=== PATIENT | female | born 1960 | race Caucasian/White ===

== ENCOUNTER 2020-10-28 13:19 | Emergency (ER) | payer MEDICAID ==
[~2020-10-28 13:19] MED LIST: DIPH25CA83 PO; ESCI10TA PO; GUAI-647 PO; LOPE-144 PO; MECL-109 PO; VITAMIN D PO
--- NOTE | 2020-10-28 13:32 | NUR ---
PT TELLS REGISTRATION SHE IS LEAVING, DOESNT WANT TO WAIT.
== END 2020-10-28 13:34 | disposition left against medical advice (07) ==
LOC: ER 13:20
DX: H57.10 Ocular pain, unspecified eye (principal); Z53.21 Procedure and treatment not carried out due to patient leaving prior to being seen by health care provider

== ENCOUNTER 2020-10-29 06:41 | Emergency (ER) | payer MEDICAID ==
[~2020-10-29] VITALS: Ht 152.4 cm; Wt 65.9 kg
[2020-10-29 06:44] VITALS: BP 137/80
[2020-10-29] MEDS ORDERED: proparacaine 0.5% ophthalmic drops 15ml EACHEYE ONE (09:10)
== END 2020-10-29 10:12 | disposition home or self-care (01) ==
LOC: ER 06:42
DX: S05.02XA Injury of conjunctiva and corneal abrasion without foreign body, left eye, initial encounter (principal); F32.9 Major depressive disorder, single episode, unspecified; Z72.89 Other problems related to lifestyle; Z79.899 Other long term (current) drug therapy; X58.XXXA Exposure to other specified factors, initial encounter; Y93.89 Activity, other specified; Y92.89 Other specified places as the place of occurrence of the external cause; Y99.8 Other external cause status
CPT/HCPCS: 99283

== ENCOUNTER 2021-08-13 02:24 | Emergency (ER) | payer MEDICAID ==
[~2021-08-13] VITALS: Ht 152.4 cm; Wt 67.5 kg
[2021-08-13 02:28] VITALS: BP 141/63
[2021-08-13] MEDS ORDERED: LIDOCAINE 2% w/EPI 1:100:000 30mL injection MDV**cath lab 1 only SQ ONE (02:45)
[2021-08-13] MEDS ORDERED: TETanus/Pertussis (Acell)/Diphther VAC/PF (Tdap-Adult) 0.5ml syringe IMVAC ONE (02:45)
--- NOTE | 2021-08-13 03:57 | NUR ---
AT BEDSIDE STITCHING FACIAL LACERATION
== END 2021-08-13 05:10 | disposition home or self-care (01) ==
LOC: ER 02:25
DX: S01.81XA Laceration without foreign body of other part of head, initial encounter (principal); S06.0X0A Concussion without loss of consciousness, initial encounter; F10.129 Alcohol abuse with intoxication, unspecified; F32.A Depression, unspecified; Z72.89 Other problems related to lifestyle; Z20.3 Contact with and (suspected) exposure to rabies; Z79.899 Other long term (current) drug therapy; W18.30XA Fall on same level, unspecified, initial encounter; Y93.89 Activity, other specified; Y92.89 Other specified places as the place of occurrence of the external cause; Y99.8 Other external cause status; Y90.9 Presence of alcohol in blood, level not specified
CPT/HCPCS: 12011; 12051; 70450; 70486; 90471; 90715; 99284

== ENCOUNTER 2022-10-02 10:21 | Emergency (ER) | payer MEDICAID ==
[~2022-10-02] VITALS: Ht 152.4 cm; Wt 65.0 kg
[2022-10-02 10:24] VITALS: BP 157/70
[2022-10-02] MEDS ORDERED: ALPR1TAB2 PO (11:11)
== END 2022-10-02 11:21 | disposition home or self-care (01) ==
LOC: ER 10:22
DX: F41.9 Anxiety disorder, unspecified (principal); F32.A Depression, unspecified; Z72.89 Other problems related to lifestyle; Z79.899 Other long term (current) drug therapy
CPT/HCPCS: 99283

== ENCOUNTER 2023-12-25 09:17 | Outpatient (CLI) | payer MEDICAID ==
[~2023-12-25 09:17] MED LIST changes: +ALPR1TAB2 PO
== END 2023-12-25 23:59 | disposition home or self-care (01) ==
LOC: MRI 09:17
PROVIDERS: ATTEND Pediatrics Sports Medicine
DX: M19.011 Primary osteoarthritis, right shoulder (principal); M75.41 Impingement syndrome of right shoulder; R29.898 Other symptoms and signs involving the musculoskeletal system; M89.311 Hypertrophy of bone, right shoulder; M25.511 Pain in right shoulder
CPT/HCPCS: 73221